=== PATIENT | female | born 1975 | race Caucasian/White ===

== ENCOUNTER → 2023-12-15 | Outpatient (CLI) | payer OTHER ==
--- NOTE | 2023-12-18 14:18 | MM ---
Reason for Exam: Screening (asymptomatic). Last mammogram was performed 1 year(s) and 3 month(s) ago. Patient History: Menarche at age 11. First Full-Term at age 28. Late child-bearing (after 28). Perimenopausal. Patient used Hormonal Contraceptives for 15 years. Paternal grandmother had breast cancer, age 31. Risk Values: Gema 5 year model risk: 1.3%. NCI Lifetime model risk: 12.1%. Prior Study Comparison: 02/23/2021 Right MG diagnostic mammo RT wo CAD, [facility]. 05/27/2021 Bilateral MG screening mammo w CAD - 2, [facility]. 08/24/2022 Bilateral MG 3D screening mammo w/cad, [facility]. Tissue Density: There are scattered fibroglandular densities. Findings: Analyzed By CAD. There is no suspicious group of microcalcifications or new suspicious mass. Overall Assessment: Negative, BI-RAD 1 Management: Screening Mammogram of both breasts in [address] [facility] will attempt to contact patient to return for supplemental views and ultrasound if indicated. Patient should continue monthly self-breast exams. A clinical breast exam by your physician is recommended on an annual basis. This exam should not preclude additional follow-up of suspicious palpable abnormalities. Note on Gema scores and lifetime risk: 1. A Gema score greater than 3% is considered moderate risk. If this is the case, consider specialist referral to assess eligibility for a risk reducing agent. 2. If overall lifetime risk for the development of breast cancer is 20% or higher, the patient may qualify for future screening with alternating mammogram and breast MRI. Electronically signed and approved by: Leland Strickland DO
== END | disposition home or self-care (01) ==
LOC: RADMAMWWP 08:33
PROVIDERS: ATTEND Obstetrics & Gynecology
DX: Z12.31 Encounter for screening mammogram for malignant neoplasm of breast (principal); Z80.3 Family history of malignant neoplasm of breast
CPT/HCPCS: 77063; 77067